=== PATIENT | female | born 1955 | race African-American/Black ===

== ENCOUNTER 2019-08-02 16:17 | Inpatient (IN) | payer OTHER, MEDICAID ==
[~2019-08-02] VITALS: Ht 152.4 cm; Wt 82.6 kg
[2019-08-02 16:38] VITALS: BP 140/94
[2019-08-02] MEDS ORDERED: ELIQUIS5 MG PO (16:44)
[2019-08-02] MEDS ORDERED: ABILIFY MAINTE400 M1 IM (16:45)
[2019-08-02] MEDS ORDERED: TRAZODONE 150150 M1 PO (16:45)
[2019-08-02 17:45] LABS: ABSOLUTE LYMPHOCYTES 1.1 thou/uL (0.8-5.3); ABSOLUTE MONOCYTES 0.9 thou/uL (0.0-1.2); ABSOLUTE NEUTROPHILS 3.1 thou/uL (1.6-8.1); BASOPHILS 0.4 %; EOSINOPHILS 0.5 %; HEMATOCRIT 44.4 % (37.0-47.0); HEMOGLOBIN 14.9 gm/dL (12.0-15.0); LYMPHOCYTES 21.2 %; MCH 27.2 pg (26.0-34.0); MCHC 33.5 g/dL (28.0-37.0); MCV 81.4 fL (80.0-100.0); MONOCYTES 17.3 %; MPV 8.6 fl. (7.2-11.1); NUCLEATED RBCS 0 /100WBC; PLATELET COUNT* 237 thou/uL (150-400); POLYS 60.6 %; RBC 5.45 mil/uL (4.20-5.00); RDW-CV 16.3 % (10.5-14.5); WBC 5.2 thou/uL (4.0-11.0)
[2019-08-02 17:52] LABS: CALCIUM 9.1 mg/dL (8.5-10.1); CREATININE 1.2 mg/dL (0.6-1.3); POTASSIUM 3.6 mmol/L (3.5-5.1)
[2019-08-02 17:57] LABS: ALBUMIN 3.5 g/dL (3.4-5.0); TOTAL BILIRUBIN 0.6 mg/dL (<0.1-1.0); TOTAL PROTEIN 7.6 g/dL (6.4-8.2)
--- NOTE | 2019-08-02 18:58 | NUR ---
REPORT GIVEN TO HENRRY MOORE WHO IS TO ASSUME PT CARE AT THIS TIME.
[2019-08-02 20:26] LABS: URINE BLOOD NEGATIVE (Negative); URINE CLARITY CLEAR; URINE COLOR YELLOW; URINE GLUCOSE-RANDOM NEGATIVE (Negative); URINE KETONES NEGATIVE (Negative); URINE LEUKOCYTES-REFLEX NEGATIVE (Negative); URINE NITRITE-REFLEX NEGATIVE (Negative); URINE PROTEIN TRACE (Negative); URINE UROBILINOGEN 0.2 E.U./dl (0.2-1.0)
[2019-08-02 20:29] LABS: URINE BILIRUBIN 1+ (Negative)
[2019-08-02 20:33] LABS: ICTOTEST (BILI CONFIRMATORY) Negative (Negative)
[2019-08-02 21:46] VITALS: BP 143/88
[2019-08-02 22:01] VITALS: BP 123/86
--- NOTE | 2019-08-03 06:20 | NUR ---
PATIENT ADMITTED, NG TUBE PLACED. 500 ML OUT DURING SHIFT. REPORTS PAIN IN ABD 05/24. GAVE MORPHINE Q4. SHE WAS RESTING COMFORTABLY DURING SHIFT. MADE HER A FALL RISK BECAUSE SHE THOUGHT SHE HAD GOT UP AND WENT TO THE RESTROOM BUT DID NOT AND HAD AN ACCIDENT IN HER BED. WE CHANGED HER SHEETS AND GAVE HER A BRIEF. SHE WILL CONTINUE NG TUBE UNTIL SURGERY DECIDES ON PLAN. WILL CONTINUE TO MONITOR.
[2019-08-03 08:35] VITALS: BP 108/74
--- NOTE | 2019-08-03 13:21 | EKG ---
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: : 1955 Requested By: Lorraine Saeed Order Number: [id number] MD: Francis Goldberg Measurements Intervals [place] Rate: 96 P: 64 LA: 119 QRS: 21 QRSD: 83 T: 186 QT: 371 QTc: 469 Interpretive Statements Sinus rhythm Atrial premature complex Left atrial enlargement Abnormal R-wave progression, early transition Repol abnrm suggests ischemia, lateral leads Artifact in lead(s) II,III,aVR,aVF No previous ECG available for comparison Electronically Signed On 08-03-2019 13:20:52 CDT by Francis Goldberg [email or web address] <ELECTRONICALLY SIGNED> By: Francis Goldberg MD, FACC 08/03/19 1320 1718 17 Francis Goldberg MD, FACC /EPI
--- NOTE | 2019-08-03 14:09 | CON ---
[address] [address] CONSULTATION Name: VIRGINIA TSAI David Room: [address] IN M.R.#: [id number] Admission: 08/02/19 Attend Phys: Abigail Winston MD Discharge: Date of : 51 Report #: [id number] THIS REPORT FOR: //name// CC: [facility] physician/PCP Abigail Winston DATE OF SERVICE: 08/02/2019 ATTENDING PHYSICIAN: Dr. Abigali Winston CONSULTING PHYSICIAN: Dr. Favio Martinez REASON FOR CONSULTATION: Small bowel obstruction. ASSESSMENT: 1. Small-bowel obstruction in the setting of no previous surgery and no hernias. 2. Recent deep vein thrombosis with pulmonary embolus, on Eliquis. 3. Tobaccoism. RECOMMENDATIONS: 1. Thank you for the consultation. I will follow along. 2. Recommend placement of NG tube tonight due to the impressive distention of the small bowel and stomach. 3. The patient's history is concerning given that she does seem to have a small-bowel obstruction with no prior history of surgery and no detectable hernias. It was more concerning that she was just diagnosed with a deep vein thrombosis and pulmonary embolism and started on Eliquis. It is unknown as to why she had the deep vein thrombosis to myself or the patient. HISTORY OF PRESENT ILLNESS: The patient is a very pleasant 64-year-old female who presented to the hospital with abdominal pain. The patient reports that starting on Sunday, she had initiation of what started as back pain which was while she was out with her boyfriend on her birthday. She went to go lie down and the symptoms worsened, she developed abdominal pain, nausea and vomiting. The patient's abdominal pain is diffuse. She last vomited yesterday. She denies any blood in her vomit. She is currently nauseated. She endorses flatus recently and her last bowel movement was yesterday and is regular. Reports that she cannot eat or drink anything currently. PAST MEDICAL HISTORY: 1. DVT/PE diagnosed last month at [place], on Eliquis. 2. The patient denies any other medical comorbidities. PAST SURGICAL HISTORY: 1. [place] [address] CONSULTATION Name: VIRGINIA TSAI Room: [address] IN [facility]#: [id number] Admission: 08/02/19 Attend Phys: Abigail Winston MD Discharge: Date of : 51 Report #: [id number] 2. She has never had a colonoscopy. SOCIAL HISTORY: 1. Rare alcohol use. 2. Smokes 1 pack per day. FAMILY HISTORY: Denies malignancy or coagulopathy. REVIEW OF SYSTEMS: CONSTITUTIONAL: No fever. No chills. HEENT: Denies blurring of vision, double vision, headaches, hearing loss, sinus drainage or sore throat. Denies blurring of vision, double vision, headaches, hearing loss, sinus drainage or sore throat. CARDIOVASCULAR: Denies chest pain, palpitations, orthopnea or paroxysmal nocturnal dyspnea. RESPIRATORY: Denies cough, wheezing, hemoptysis, or shortness of air. GASTROINTESTINAL: See above and below. GENITOURINARY: Denies dysuria or hematuria or kidney stones. No urinary frequency, urgency or incontinence. Denies dysuria or hematuria or kidney stones. No urinary frequency, urgency or incontinence. MUSCULOSKELETAL: No joint pain. No muscle pain. NEUROLOGICAL: Denies tremor, stroke or seizure. Denies tremor, stroke or seizure. HEMATOLOGIC/LYMPHATICS: See above and below. SKIN: No rash or ulceration. ENDOCRINE: No heat or cold intolerance PSYCHIATRIC: Denies depression, anxiety, or schizophrenia. PHYSICAL EXAMINATION: GENERAL: No apparent distress, alert and oriented x 3. HEENT: PERRLA, EOMI, MMM, NCAT. NECK: Supple. No LAD CARDIOVASCULAR: Regular rhythm and rate. Hemodynamically stable. Normal capillary refill. Regular rhythm and rate. Hemodynamically stable. Normal capillary refill. PULMONARY: Nonlabored. Clear to auscultation bilaterally ABDOMEN: Soft, distended, mild tenderness to palpation diffusely. No guarding, rebound or rigidity. No hernias appreciated in the midline or in the bilateral groin regions. EXTREMITIES: Calves soft, nontender, no edema. SKIN: No rashes or bruises. PSYCHIATRIC: Normal mood and affect Normal mood and affect. NEUROLOGICAL: Grossly intact. CN II-XII grossly intact. MUSCULOSKELETAL: 5/5 strength in upper extremities and lower extremities bilaterally LYMPHATICS: No cervical, inguinal, or suprac[place] [address] CONSULTATION Name: VIRGINIA TSAI David Room: [address]#: [id number] Admission: 08/02/19 Attend Phys: Abigail Winston MD Discharge: Date of : 51 Report #: [id number] LABORATORY AND DIAGNOSTIC DATA: White blood count 5. CT of the abdomen and pelvis was reviewed by myself. The patient does seem to have a small-bowel obstruction. The radiologist did read out small-bowel obstruction with transition point consistent with high-grade small bowel obstruction. <ELECTRONICALLY SIGNED> By: Favio Martinez MD 08/03/19 1409 2321 [id number] Martinez MD /nt
[2019-08-03 16:00] VITALS: BP 135/71
[2019-08-03 20:00] VITALS: BP 122/68
[2019-08-04 02:13] VITALS: BP 133/64
[2019-08-04 04:01] LABS: HEMATOCRIT 39.7 % (37.0-47.0); MCHC 32.5 g/dL (28.0-37.0); MPV 9.1 fl. (7.2-11.1); RBC 4.78 mil/uL (4.20-5.00); RDW-CV 16.7 % (10.5-14.5)
[2019-08-04 04:12] LABS: HEMOGLOBIN 12.9 gm/dL (12.0-15.0)
[2019-08-04 04:32] LABS: ALBUMIN 3.1 g/dL (3.4-5.0); CREATININE 0.8 mg/dL (0.6-1.3); MAGNESIUM 1.9 mg/dL (1.8-2.4); PHOSPHORUS* 3.1 mg/dL (2.5-4.9); POTASSIUM 3.3 mmol/L (3.5-5.1)
[2019-08-04 05:00] VITALS: BP 132/75
--- NOTE | 2019-08-04 06:19 | NUR ---
PT AOX4 AT START OF SHIFT, BECOMING CONFUSED AFTER RECEIVING IV MORPHINE FOR CO ABD PAIN-PT ALERT AND ORIENTED TO SELF AND ASKS REPEATEDLY WHY SHE IS HERE AND HOW SHE IS GOING TO GET HOME. TALKED TO S/O JULIANN ON PHONE FOR REASSURANCE. REORIENTED SEVERAL TIMES, REASSURANCE GIVEN. NGT TO CHASE SIM LIQUID 35OMLS THIS SHIFT. UP WITH ASSIST TO BSC AND INCONTINENT X1 OVERNIGHT. AM LABS DRAWN. VSS, TEMP 99.3 MAX. O2 1-2L TO KEEP SATS 94% OR >. FOUND WITH O2 OFF AND ROOM AIR SAT 92%. ENCOURAGED USE OF IS. LOVENOX GIVEN ORDERED .PT MOVES ABOUT IN BED INDEP, SITS UP TO SIDE OF BED-BED ALARM ON FOR SAFETY. PT DISCONTINUED IV INADVERTENTLY, NEW IV LWRIST IVF INFUSING PER PUMP. NPO WITH FEW ICE CHIPS OVERNIGHT. REQUESTING "SO I CAN CALM DOWN AND SLEEP", LORAZEPAM GIVEN ONCE WITH GOOD RESULT. NO CO CP, NO REPORTS OF FLATUS THIS SHIFT. AM LABS DRAWN. CALL LITE IN EASY REACH, BED ALARM ON FOR SAFETY.
[2019-08-04 08:05] VITALS: BP 154/80
--- NOTE | 2019-08-04 14:53 | NUR ---
Pt nurse discussed with SW that pt is confused today. Pt son Jean Marie' number is [phone]. Pt has lived at home alone and has support in boyfriend and family. SW to continue to follow to assist with safe dc planning.
[2019-08-04 16:00] VITALS: BP 119/89
--- NOTE | 2019-08-04 20:31 | NUR ---
DR. BOOGIE AND DR. BOWLING AWARE OF PATIENT PULLING OUT NG TUBE. INSTRUCTED TO REPLACE NG. CAMP HOUSEKEEPER RN NOTIFIED. ALL SAFETY MEASURES MAINTAINED. PATIENT HAD LARGE LIQUID BM. PATEINT DENIES FURTHER NEEDS AT THIS TIME.
[2019-08-04 20:45] VITALS: BP 132/75
[2019-08-04 23:35] VITALS: BP 132/75
[2019-08-05 04:56] LABS: HEMOGLOBIN 12.9 gm/dL (12.0-15.0); MCH 26.6 pg (26.0-34.0); MCHC 32.2 g/dL (28.0-37.0); MCV 82.6 fL (80.0-100.0); MPV 9.2 fl. (7.2-11.1); RBC 4.84 mil/uL (4.20-5.00); RDW-CV 16.3 % (10.5-14.5); WBC 4.2 thou/uL (4.0-11.0)
[2019-08-05 05:07] LABS: CALCIUM 9.2 mg/dL (8.5-10.1); CREATININE 0.8 mg/dL (0.6-1.3)
--- NOTE | 2019-08-05 05:08 | NUR ---
PT AO TO SELF AND SITUATION MOSTLY OVERNIGHT, PERIODS OF INCREASED CONFUSION BUT MORE EASILY REORIENTED TONIGHT THAN LAST NIGHT. NGT REINSERTED AT START OF SHIFT, XRAY CONFIRMING POSITION IN STOMACH, LIS DRAINING BROWN LIQUID. PT PULLED IV OUT OVERNIGHT, RESTARTED BY NSG SUP RWRIST IVF INFUSING PER PUMP, IV K GIVEN. HAS BEEN NPO WITHOUT ICE CHIPS SINCE MIDNIGHT. PT HAD SEVERAL WATERY LIQUID BROWN STOOLS OVERNIGHT-INCONTINENT. A FEW SMALL FORMED PARTICLES SEEN IN BM. AM LABS DRAWN. CALL LITE IN EASY REACH, BED ALARM ON FOR SAFETY. JOSE CARE GIVEN WITH INCONTINENT EPISODES AND BARRIER CREAM APPLIED. POSSIBLE EXP LAP TODAY WITH DR BOWLING.
[2019-08-05 05:10] LABS: INR 1.1; PROTIME 10.8 Seconds (9.20-11.50)
--- NOTE | 2019-08-05 15:41 | NUR ---
SW met with pt and pt son to follow up on completing assessment and discussing safe dc planning. Pt said she felt some better but pt also was very tired. Pt son lives with pt although pt is alone at times when pt son is at work. Pt and pt son not certain of any dc needs at this time. SW to continue to follow.
--- NOTE | 2019-08-05 18:55 | NUR ---
PATIENT AMBULATING WITH ASSISTANCE, GAIT BELT, AND WALKER. ALL SAFETY MEASURES MAINTAINED. NG RESIDUAL 125. PATIETN DENIES FURTHER NEEDS AT THIS TIME.
[2019-08-05 20:10] VITALS: BP 153/82
--- NOTE | 2019-08-06 05:43 | NUR ---
PT AGITATED, IMPULSIVE AND IRRITABLE AT START OF SHIFT. WANTING TO GET DRESSED AND GO HOME, AO TO SELF AND SITUATION SOMEWHAT- NOT HAPPY ABOUT NOT BEING ABLE TO EAT. LORAZEPAM GIVEN X2 THIS SHIFT. RFA IVF INFUSING PER PUMP, IV POTASSIUM GIVEN AND AM LAB WNL. NGT CLAMPED, RESIDUAL MAX 30ML. INCONTINENT SMALL AMOUNT BM AND URINE. SETS OFF BED ALARM GETTING OOB TO USE BSC-INSTRUCTED TO USE CALL LITE BUT FORGETFUL AND IMPULSIVE AT TIMES. NPO WITH SMALL AMOUNT WATER AND ICE CHIPS-AGAIN STATES SHE DOESNT WANT WATER AND ICE BUT FOOD AND COFFEE-EDUCATION GIVEN REPEATEDLY ABOUT PLAN OF CARE BUT PT REMAINS AGGRAVATED. CALL LITE IN EASY REACH, BED ALARM ON FOR SAFETY.
--- NOTE | 2019-08-06 19:29 | NUR ---
Patient ambulating with stand by assistance. NG discontinued per order. Patient tolerating diet well. All safety measures maintained. Dr. Childs notified of patient discontinuing IV and refusing new IV placement. Patient denies further needs at this time.
[2019-08-06 20:30] VITALS: BP 122/72
[2019-08-07] VITALS: BP 79/38
[2019-08-07 04:20] VITALS: BP 88/48
[2019-08-07 05:08] LABS: CREATININE 1.1 mg/dL (0.6-1.3); POTASSIUM 4.4 mmol/L (3.5-5.1)
[2019-08-07 05:09] LABS: CALCIUM 9.3 mg/dL (8.5-10.1); MAGNESIUM 1.5 mg/dL (1.8-2.4)
--- NOTE | 2019-08-07 06:29 | NUR ---
Oriented x 2-3 she is drowsy this shift. She does awaken easily and has answered questions appropriately. She was adament that she doesn't want an IV restarted. She did request pain meds and I explained there was only IV MS ordered. Dr Childs was notified and new orders were recieved. She has been incontinent of bowel and bladder. This am her magnesium was replaced and new lab draw was entered per electrolyte protocol. BP has been low this shift but she's unsymptomatic. She has slept well.
[2019-08-07 16:00] VITALS: BP 103/67
--- NOTE | 2019-08-07 17:19 | NUR ---
PATIENT ALERT AND ORIENTED X 3. FORGETFUL AT TIMES. VITAL SIGNS STABLE ON ROOM AIR. UP WITH ASSISTANCE OF ONE TO THE BEDSIDE COMODE. REFUSES IV ACCESS AT THIS TIME. PAIN BEING MANAGED WITH PO MEDICATION. DENIES NAUSEA. FALL PRECAUTIONS IN PLACE AND BED ALARM ON. HOURLY ROUNDS MAINTAINED THROUGHTOUT THE SHIFT. CALL LIGHT WITHIN REACH. NURSING WILL CONTINUE TO MONITOR.
[2019-08-07 21:15] VITALS: BP 120/70
--- NOTE | 2019-08-08 06:22 | NUR ---
Oriented x 3 but drowsy and forgetful. Vitals are stable this shift. She was up to the bedside commode to void with assist. Mg+ level was still low after replacement yesterday. Lab redrew it at 0100 and it continued to be low, doses given again. New lab draw scheduled for 0600 or 0700. She has slept well this shift.
[2019-08-08 08:00] VITALS: BP 130/75
[2019-08-08] MEDS ORDERED: ACIDOPHILUS1 EAC3 PO (08:49)
[2019-08-08] MEDS ORDERED: AUGMENTIN 875-1 EACH PO (08:49)
[2019-08-08] MEDS ORDERED: MAGNESIUM250 M1 PO (08:49)
[2019-08-08] MEDS ORDERED: ZOFRAN ODT4 MG PO (08:49)
[2019-08-08 10:08] VITALS: BP 120/70
--- NOTE | 2019-08-08 11:06 | NUR ---
Pt to dc home with son today. SW called and left message for pt son regarding dc plan today. No needs noted in dc summary for any HH or DME. Pt/pt son will receive dc information/instructions. SW encouraged call back with any questions or concerns.
[2019-08-08 15:50] VITALS: BP 111/74
--- NOTE | 2019-08-08 17:41 | NUR ---
ASSUMED PATIENT CARE AT 0700. PATIENT ALERT AND ORIENTED TIMES FOUR. NO COMPLAINTS OF PAIN OR DISCOMFORT NOTED. CAREGIVER HER AT 1700 TO GET PATIENT. ARCHITECTURAL TECHNICIAN AND HOURLY ROUNDING COMPLETED CHARTED
== END 2019-08-08 17:00 | disposition home or self-care (01) | DRG 177 ==
LOC: M.ERS 16:17 → M.TBA-ER 20:08 → M.3W 20:08 → M.ORTHSURG 21:37 → M.3W 21:47
PROVIDERS: Family Medicine; Internal Medicine; Personal Emergency Response Attendant; Surgery; ADMIT Internal Medicine
PROC: 0D9670Z Drainage of Stomach with Drainage Device, Via Natural or Artificial Opening (ICD-10-PCS; principal; 2019-08-02)
DX: J69.0 Pneumonitis due to inhalation of food and vomit (principal); G93.41 Metabolic encephalopathy; K56.609 Unspecified intestinal obstruction, unspecified as to partial versus complete obstruction; E44.1 Mild protein-calorie malnutrition; K59.00 Constipation, unspecified; F41.1 Generalized anxiety disorder; G47.00 Insomnia, unspecified; E66.9 Obesity, unspecified; F17.210 Nicotine dependence, cigarettes, uncomplicated; E86.9 Volume depletion, unspecified; Z79.82 Long term (current) use of aspirin; Z86.718 Personal history of other venous thrombosis and embolism; Z86.711 Personal history of pulmonary embolism; Z68.35 Body mass index [BMI] 35.0-35.9, adult; Z79.899 Other long term (current) drug therapy